=== PATIENT | female | born 1970 | race Two or more races ===

== ENCOUNTER 2017-12-14 05:55 | Inpatient (IN) | payer OTHER ==
[2017-12-14] VITALS (17 sets, daily range): BP systolic 125–166; BP diastolic 67–97
[~2017-12-14] VITALS: Ht 160 cm; Wt 113.4 kg
[~2017-12-14 05:55] MED LIST: CLARITIN10 M2 ORAL; TROSPIUM CHLORI60 MG PO; VITAMIN B COMP1 EAC2 ORAL
[2017-12-14] MEDS ORDERED: Ketamine 500mg Inj ONE (06:38)
[2017-12-14] MEDS ORDERED: Propofol 200mg/20ml IV ONE (06:38)
[2017-12-14] MEDS ORDERED: Lidocaine 1% MPF 10mg/ml 5ml ONE (06:38)
[2017-12-14] MEDS ORDERED: fentaNYL 100 mcg/2 mL IV ONE (06:38)
--- NOTE | 2017-12-14 06:41 | Pre-Procedure Note/Attestation ---
Pre-Procedure Note/Attestation Complete Prior to Procedure Planned Procedure: bilateral Procedure Narrative: L4-S1 bilateral laminectomies Indications for Procedure Pre-Operative Diagnosis: L4-S1 symptomatic stenosis Attestation I attest that I discussed the nature of the procedure; its benefits; risks and complications; and alternatives (and the risks and benefits of such alternatives ), prior to the procedure, with the patient (or the patient's legal bank representative). I attest that, if there was a reasonable possibility of needing a blood transfusion, the patient (or the patient's legal bank representative) was given the [facility] standardized written summary, pursuant to the Amos Suarez Blood Safety Act ([place] Health and Safety Code # 1645, as amended). I attest that I re-evaluated the patient just prior to the surgery and that there has been no change in the patient's H&P, except as documented below: Maynor Cain Dec 14, 2017 06:41
[2017-12-14] MEDS ORDERED: Thrombin 5000 units TOPIC ONE ×2 (06:45→06:47)
[2017-12-14] MEDS ORDERED: Thrombin 5000 units spray kit TOPIC ONE (06:45)
[2017-12-14] MEDS ORDERED: Gelfoam Size TOPIC ONE (06:45)
[2017-12-14] MEDS ORDERED: EPINEPHrine 1mg/1ml Amp ONE (06:45)
[2017-12-14] MEDS ORDERED: Bupivacaine 0.5% Inj 30 ml vial INJ ONE ×2 (06:46→10:22)
[2017-12-14] MEDS ORDERED: Dyna-Hex 2% Top Sol 2oz TOPIC ONE (06:46)
[2017-12-14] MEDS ORDERED: Gelfoam Absorbable 1gm powder pkt TOPIC ONE (06:46)
--- NOTE | 2017-12-14 06:46 | Immediate Post-Op Evaluation ---
Immediate Post-Op Evalulation Immediate Post-Op Evalulation Procedure: L4-S1 laminectomy Date of Evaluation: Dec 14, 2017 Time of Evaluation: 11:22 IV Fluids: 900ml Blood Products: 0 Estimated Blood Loss: 200ml Urinary Output: 200ml Blood Pressure Systolic: 166 Blood Pressure Diastolic: 97 Pulse Rate: 98 Respiratory Rate: 23 O2 Sat by Pulse Oximetry: 96 Temperature (Fahrenheit): 97.4 Pain Score (1-10): 0 Nausea: No Vomiting: No Complications none Patient Status: awake, patent, none Hydration Status: adequate Drug: ancef 2 grams Given Within 1 Hr of Incision: Yes Time Given: 07:30 Maribell Abad MD Dec 14, 2017 06:46
[2017-12-14] MEDS ORDERED: Vancomycin 1gm inj IVPB ONE (06:47)
--- NOTE | 2017-12-14 06:47 | Anethesia Preoperative Eval ---
Anesthesia Pre-op PMH/ROS General Date of Evaluation: Dec 14, 2017 Time of Evaluation: 07:00 Anesthesiologist: ASA Score: ASA 2 Mallampati Score Class I : Soft palate, uvula, fauces, pillars visible Class II: Soft palate, uvula, fauces visible Class III: Soft palate, base of uvula visible Class IV: Only hard plate visible Mallampati Classification: Class II Surgeon: judson Diagnosis: back pain Surgical Procedure: L4-51 bilteral laminectomy and possible discectomy Allergies: Coded Allergies: Bumble Bee (Verified Allergy, Severe, 12/14/17) SHORTNESS OF BREATH METHADONE (Verified Allergy, Severe, 12/14/17) SHORTNESS OF BREATH OXYCODONE (Verified Allergy, Severe, 12/14/17) SHORTNESS OF BREATH, CHEST TIGHTNESS, ITCHING, HIVES PREDNISONE (Verified Allergy, Severe, 12/14/17) CHEST TIGHTNESS, SOB, ITCHING Past Medical History Cardiovascular: Denies: HTN, CAD, DE, valve dz, arrhythmia, other Pulmonary: Denies: asthma, COPD, AYANA, other Gastrointestinal/Genitourinary: Reports: other - urinary incontinence; Denies: GERD, CRI, ESRD Neurologic/Psychiatric: Denies: dementia, CVA, depression/anxiety, TIA, other Endocrine: Denies: DM, hypothyroidism, steroids, other HEENT: Denies: cataract (L), cataract (R), glaucoma, QAGAN TAYAGUNGIN (L), QAGAN TAYAGUNGIN (R), other Other: obesity PSxH Narrative: tubal ligation, elbow surgeries Anesthesia Pre-op Phys. Exam Physician Exam Constitutional: other - back pain Cardiovascular: RRR Respiratory: CTA Gastrointestinal: S/NT/ND Airway Exam Mallampati Score: Class II MO: full ROM: full Teeth: intact Dentures: no upper, no lower Anesthesia Pre-op A/P Labs Urine Test negative Risk Assessment & Plan Assessment: asa 2 Plan: ETGA Status Change Before Surgery: No Pre-Antibiotics Drug: ancef 2 grams Given Within 1 Hr of Incision: Yes Time Given: 07:30 Maribell Abad MD Dec 14, 2017 06:47
[2017-12-14] MEDS ORDERED: Zemuron 50mg/5ml Inj IV ONE (06:51)
[2017-12-14] MEDS ORDERED: Sugammadex Sodium 200mg/2ml vial IV ONE (06:51)
[2017-12-14] MEDS ORDERED: Propofol 1,000mg/ 100ml btl IV ONE (07:00)
[2017-12-14] MEDS ORDERED: LR 1000ml ONE (07:00)
[2017-12-14] MEDS ORDERED: NS Irrig 1000ml ONE (07:00)
[2017-12-14] MEDS ORDERED: Sterile Water Irrig 1000ml IRRIG ONE (07:00)
[2017-12-14] MEDS ORDERED: Bacitracin 50000 Units Vial ONE (07:02)
[2017-12-14] MEDS ORDERED: LR 1000ml 1,000 ML IVLG SCH (08:25)
[2017-12-14] MEDS ORDERED: DiphenhydrAMINE 50mg/ml Inj IVP PRN (08:30)
[2017-12-14] MEDS ORDERED: Hydromorphone 0.5mg/0.5ml inj IVP PRN (08:30)
[2017-12-14] MEDS ORDERED: Labetalol 5mg/ml 20ml vial IV PRN (08:30)
[2017-12-14] MEDS ORDERED: Acetaminophen (Non formulary) 100 ML IV ONE (09:00)
--- NOTE | 2017-12-14 11:04 | Brief Operative Note ---
Immediate Post Operative Note Operative Note Chief Complaint: Back pain with radiculopathy Pre-op Diagnosis: L4-S1 symptomatic stenosis Procedure: L4-S1 bilateral laminectomy Post-op Diagnosis: same as pre-op Surgeon: Dr Cain Anesthesia: general Specimen: yes - lamina and ligaments Complications: none Condition: stable Fluids: NA Estimated Blood Loss: volume - 75 ml Drains: none Implant(s) used?: No Maynor Cain Dec 14, 2017 11:04
[2017-12-14] MEDS: fentaNYL 100 mcg/2 mL IV PRN ×4 (11:47→12:33)
[2017-12-14] MEDS ORDERED: Ketorolac 30mg Inj IV SCH (12:15)
--- NOTE | 2017-12-14 12:21 | Diagnostic Imaging Report ---
Indication: Pain Comparison: None Findings: Single crosstable lateral view of the lumbar spine showing instrumentation posterior to L4-5. Total fluoroscopic time 3 seconds. Single image noted. IMPRESSION: Intraoperative imaging
--- NOTE | 2017-12-14 13:11 | 48 Hour Post Anesthesia Eval ---
Post Anesthesia Evaluation Procedure: L4-S1 laminectomy Date of Evaluation: Dec 14, 2017 Time of Evaluation: 12:46 Blood Pressure Systolic: 131 0: 81 Pulse Rate: 90 Respiratory Rate: 11 Temperature (Fahrenheit): 97.8 O2 Sat by Pulse Oximetry: 99 Airway: patent Nausea: No Vomiting: No Pain Intensity: 5 Hydration Status: adequate Mental Status/LOC: patient returned to baseline Post-Anesthesia Complications: none Follow-up care needed: N/A Maribell Abad MD Dec 14, 2017 13:11
[2017-12-14] MEDS ORDERED: Ketorolac 30mg Inj IM SCH (14:00)
[2017-12-14] MEDS: ceFAZolin sod 2 GM in D5W 55 ML IV SCH (16:14)
[2017-12-14] MEDS: Ketorolac 30mg Inj IM SCH ×2 (16:14→22:30)
[2017-12-14] MEDS: Docusate 100mg cap ORAL SCH (16:20)
--- NOTE | 2017-12-14 17:10 | General Progress Note ---
Assessment/Plan Status Narrative s/p complex spine surgery pt ot dvt prophyalxis doing well monitor svetlana Subjective Date patient seen: Dec 14, 2017 Time patient seen: 17:09 Constitutional: Reports: no symptoms - has pain Allergies: Coded Allergies: Bumble Bee (Verified Allergy, Severe, 12/14/17) SHORTNESS OF BREATH METHADONE (Verified Allergy, Severe, 12/14/17) SHORTNESS OF BREATH OXYCODONE (Verified Allergy, Severe, 12/14/17) SHORTNESS OF BREATH, CHEST TIGHTNESS, ITCHING, HIVES PREDNISONE (Verified Allergy, Severe, 12/14/17) CHEST TIGHTNESS, SOB, ITCHING Objective Last 24 Hour Vital Signs Date Time Temp Pulse Resp B/P (MAP) Pulse Ox O2 Delivery O2 Flow Rate FiO2 12/14/17 16:00 97.6 90 18 133/74 (93) 99 97.6 12/14/17 14:15 97.3 84 18 135/90 (105) 96 97.3 12/14/17 13:45 Nasal Cannula 2.0 12/14/17 13:45 97.5 86 18 139/87 (104) 98 97.5 12/14/17 13:36 97.3 12/14/17 13:15 98.0 86 14 140/88 99 Nasal Cannula 3 98.0 12/14/17 13:11 208.0 90 11 99 12/14/17 13:06 97.8 12/14/17 13:06 92 13 130/82 99 Nasal Cannula 3 12/14/17 13:00 91 13 131/80 99 Nasal Cannula 3 12/14/17 12:46 90 11 131/81 99 Nasal Cannula 3 12/14/17 12:33 89 11 128/85 99 Nasal Cannula 3 12/14/17 12:33 97.8 12/14/17 12:30 97.3 12/14/17 12:11 89 11 145/85 99 Nasal Cannula 3 12/14/17 12:11 97.8 12/14/17 12:00 97.8 12/14/17 12:00 92 20 149/88 99 Nasal Cannula 3 12/14/17 11:47 94 17 137/91 99 Simple Mask 8 12/14/17 11:47 97.8 12/14/17 11:40 95 18 133/91 99 Simple Mask 8 12/14/17 11:32 97 18 134/91 97 Simple Mask 8 12/14/17 11:31 207.3 98 23 96 12/14/17 11:27 98 23 154/95 96 Simple Mask 8 12/14/17 11:22 97.4 98 23 166/97 96 Simple Mask 8 97.4 12/14/17 06:48 Room Air 12/14/17 06:42 97.9 83 18 125/67 (86) 99 97.9 Intake and Output 12/13/17 12/14/17 19:00 07:00 # Voids 1 Laboratory Tests 12/14/17 06:20: Urine HCG, Qualitative Negative Height (Feet): 5 Height (Inches): 3.00 Weight (Pounds): 250 General Appearance: WD/WN EENT: PERRL/EOMI Cardiovascular: normal rate, regular rhythm, no JVD Respiratory/Chest: lungs clear Abdomen: soft Aries Liao MD Dec 14, 2017 17:10
[2017-12-14] MEDS: Methocarbamol 500mg tab ORAL SCH ×2 (17:36→22:30)
--- NOTE | 2017-12-14 18:30 | Operative Note - Dictated ---
DATE OF OPERATION: 12/14/2017 INDICATION FOR SURGERY: The patient is a pleasant 47-year-old female who presented with signs and symptoms of low back pain with bilateral lumbar radiculopathy. She had attempted and failed conservative measures. Therefore, surgical and nonsurgical options were discussed. The patient requested surgical intervention. RISKS AND BENEFITS DISCUSSION: The patient was apprised about objectives, benefits, risks, and potential complications of the procedure including, but not limited to worsening of current status, possible need for further procedures, risk of infection, headache, CSF leak, possible spinal cord injury resulting in paralysis, injury to major blood vessels, chronic hemorrhage, stroke, loss of language function, coma, and even . No assurance was given whether these symptoms will improve following the procedure. Informed consent was obtained and secured in the chart after the patient voiced understanding of these risks and decided to proceed with the operation. PREOPERATIVE DIAGNOSES: 1. L4-L5 and L5-S1 stenosis. 2. Bilateral lumbar radiculopathy. 3. Morbid obesity. POSTOPERATIVE DIAGNOSES: 1. L4-L5 and L5-S1 stenosis. 2. Bilateral lumbar radiculopathy. 3. Morbid obesity. OPERATIONS: 1. L4-L5 and L5-S1 bilateral decompressive laminectomy with partial fasciectomies. 2. Microscope. 3. Fluoroscope. 4. Neuromonitoring done by outside company. 5. modifier for greater than 90 minutes spent from normal operative time during dissection, positioning, and in dissection plane due to the patient's morbid obesity status, which made surgical intervention very difficult. 6. L4-L5 and L5-S1 bilateral facet joint injections for postoperative pain control including paraspinal injections. SURGEON: Maynor Cain M.D. PUBLIC INTERVIEWER: None. ANESTHESIA: GETA. ANESTHESIOLOGIST: Dr. Maribell Abad. ESTIMATED BLOOD LOSS: Approximately 75 mL. FINDINGS: Severe stenosis at L4-L5 and L5-S1. SPECIMEN SENT: Lamina and ligaments removed. COMPLICATIONS: None. TECHNIQUE: The patient was brought into the operating room. She was then sedated and intubated by the anesthesia team. The patient was transferred to the operating table on prone position. Preoperative antibiotics were given. Eyes were taped shut after ointment was applied to prevent corneal abrasion. Vitaly Hugger was placed over the lower body to maintain control of core body temperature. Cruz catheter was inserted. All pressure points were carefully padded. Neuromonitoring team placed the needles in appropriate position and baselines were obtained. An extra time was spent during positioning due to the patient's morbid obesity. C-arm was brought in and localization of the operative levels was performed. The skin was prepped and draped in the standard surgical fashion. A time-out was taken. A linear incision was performed with a scalpel blade and dissection was carried down to the fascial layer. The fascia was then opened and dissection was continued over the lamina and medial aspect of the facet joints bilaterally at L4-L5 and L5-S1. An x-ray was used again to confirm the correct level. An extra time was spent during dissection due to the patient's morbid obesity. Attention was first placed towards the L4 lamina. Microscope was brought in and the lamina of L4 was removed bilaterally. Partial bilateral fasciectomies was also performed. A hypertrophic ligament and flavum was removed. The lateral recess and canal were decompressed. Foraminotomies following the nerve roots of L4 and L5 were completed. Central canal, lateral recess, and foramina were rechecked to confirm to have achieved excellent decompression. Copious amount of antibiotic irrigation was then used and excellent hemostasis was maintained. The same process was then repeated for the L5-S1 level. Once completed, bilateral facet joint injections at L4-L5 and L5-S1 was carried out including paraspinal injections for postoperative pain control. The muscle layers were then reapproximated followed by watertight closure of the facial layer. The subcutaneous layer and the skin edges were all reapproximated with sutures. Skin glue was applied to the final layer. All needle count, sponge count, and instrument counts were correct at the end of the case x2. The neuromonitoring signals were stable throughout the entire case. The patient was transferred to the recovery in stable condition. The patient's family was updated after the surgery. The patient was examined after surgery and recovery and was able to move all extremities without difficulty. Maynor Cain MD DR: MARY JOB#: [id number] CC:
[2017-12-14] MEDS: Morphine Sulfate 2mg/ml Inj(IV/IM USE ONLY) IVP PRN (20:03)
[2017-12-15] VITALS: BP 106/67
[2017-12-15] MEDS: ceFAZolin sod 2 GM in D5W 55 ML IV SCH ×2 (00:49→07:29)
[2017-12-15] MEDS: Morphine Sulfate 2mg/ml Inj(IV/IM USE ONLY) IVP PRN ×3 (01:55→14:10)
[2017-12-15 04:00] VITALS: BP 135/75
[2017-12-15] MEDS: Ketorolac 30mg Inj IM SCH ×3 (04:50→16:25)
[2017-12-15 08:00] VITALS: BP 104/54
[2017-12-15] MEDS: Docusate 100mg cap ORAL SCH ×2 (08:50→17:40)
[2017-12-15] MEDS: Methocarbamol 500mg tab ORAL SCH ×4 (08:50→21:59)
[2017-12-15] MEDS: TROSPIUM 60 MG ORAL SCH (10:05)
[2017-12-15 12:00] VITALS: BP 100/63
--- NOTE | 2017-12-15 13:56 | Diagnostic Imaging Report ---
APPROVED REPORT CPT Code: 73046 Present Symptoms Comments: BILATERAL LEGS PAIN. BILATERAL: Imaging reveals a patent deep venous system bilaterally. There is no evidence of thrombus within the femoral, popliteal or tibial segments. The greater saphenous veins are also within normal limits. Doppler indicates normal spontaneous flow within these segments.
[2017-12-15 16:00] VITALS: BP 118/71
--- NOTE | 2017-12-15 19:58 | General Progress Note ---
Assessment/Plan Status Narrative s/p complex sopine usrgeyr Assessment/Plan plan n morphine extended release 15 bid morh[phine prn and dc topradol get her odff morphi iv dc plannnig tommorrow. Subjective Date patient seen: Dec 15, 2017 Time patient seen: 19:56 Constitutional: Reports: no symptoms HEENT: Reports: no symptoms Allergies: Coded Allergies: Bumble Bee (Verified Allergy, Severe, 12/14/17) SHORTNESS OF BREATH METHADONE (Verified Allergy, Severe, 12/14/17) SHORTNESS OF BREATH OXYCODONE (Verified Allergy, Severe, 12/14/17) SHORTNESS OF BREATH, CHEST TIGHTNESS, ITCHING, HIVES PREDNISONE (Verified Allergy, Severe, 12/14/17) CHEST TIGHTNESS, SOB, ITCHING Subjective has a lot o fpai9n ion morphine iv and troradol iv Objective Last 24 Hour Vital Signs Date Time Temp Pulse Resp B/P (MAP) Pulse Ox O2 Delivery O2 Flow Rate FiO2 12/15/17 16:55 97.9 12/15/17 16:25 97.9 12/15/17 16:10 97.9 12/15/17 16:00 98.4 93 20 118/71 (87) 98 98.4 12/15/17 15:11 97.9 12/15/17 14:40 97.9 12/15/17 14:10 97.9 12/15/17 12:00 97.9 83 20 100/63 (75) 98 97.9 12/15/17 10:03 98.3 12/15/17 09:00 Room Air 12/15/17 08:21 Room Air 12/15/17 08:08 98.3 12/15/17 08:00 98.0 94 20 104/54 (71) 98 98.0 12/15/17 04:00 98.3 101 20 135/75 (95) 96 98.3 12/15/17 00:00 98.0 105 20 106/67 (80) 99 98.0 12/14/17 21:00 Nasal Cannula 2.0 12/14/17 20:38 97 Nasal Cannula 2.0 12/14/17 20:38 Nasal Cannula 2.0 12/14/17 20:00 97.9 86 18 125/68 (87) 100 97.9 Intake and Output 12/14/17 12/15/17 19:00 07:00 Intake Total 2400 ml 800 ml Output Total 2250 ml 1400 ml Balance 150 ml -600 ml Intake Oral 1200 ml 800 ml IV Total 1200 ml Output Urine Total 2050 ml 1400 ml Estimated Blood Loss 200 ml Height (Feet): 5 Height (Inches): 3.00 Weight (Pounds): 250 General Appearance: WD/WN Cardiovascular: normal rate, regular rhythm, no JVD Respiratory/Chest: lungs clear Objective back no drainge Aries Liao MD Dec 15, 2017 19:58
[2017-12-15 20:00] VITALS: BP 118/78
[2017-12-15] MEDS: MS Contin 15mg tab ORAL SCH (22:00)
[2017-12-16] VITALS: BP 103/56
[2017-12-16] MEDS: Morphine IR 15mg tab ORAL PRN ×3 (02:05→17:42)
[2017-12-16 04:00] VITALS: BP 111/63
[2017-12-16 08:00] VITALS: BP 127/85
[2017-12-16] MEDS: Docusate 100mg cap ORAL SCH (09:14)
[2017-12-16] MEDS: Methocarbamol 500mg tab ORAL SCH ×3 (09:15→17:41)
[2017-12-16] MEDS: TROSPIUM 60 MG ORAL SCH (09:16)
[2017-12-16] MEDS: MS Contin 15mg tab ORAL SCH (09:16)
[2017-12-16 12:00] VITALS: BP 125/85
[2017-12-16] MEDS ORDERED: Milk of Magnesia 30ml Ud ORAL PRN (13:00)
[2017-12-16 16:00] VITALS: BP 118/70
[2017-12-16] MEDS ORDERED: Docusate 250mg cap ORAL SCH (18:00)
[2017-12-16] MEDS ORDERED: MORPHINE IR15 MG ORAL (19:49)
[2017-12-16] MEDS ORDERED: ROBAXIN500 MG PO ×2 (19:49→19:51)
[2017-12-16] MEDS ORDERED: MOVANTIK25 MG PO (19:56)
[2017-12-16 20:00] VITALS: BP 135/83
[2017-12-16] MEDS ORDERED: MORPHINE SULFATE IR PO (20:05)
--- NOTE | 2017-12-17 00:15 | Discharge Summary ---
DATE OF ADMISSION: 12/14/2017 DATE OF DISCHARGE: 12/16/2017 HOSPITAL COURSE: The patient was admitted to the hospital to undergo spine surgery. The patient underwent spine surgery without difficulty. Postoperatively, the patient was the floor and is doing well upon discharge. The patient was discharged home with Robaxin 1000 mg t.i.d., MS Contin twice a day, and MS-IR p.r.n. She was only given 40 of MS Contin, 100 of Robaxin, and 20 of morphine IR. The patient will follow up with Dr. Cain. Also, the patient was placed on Movantik for stool softeners. Aries Liao M.D. DR: PERI JOB#: [id number] CC:
== END 2017-12-16 20:54 | disposition home or self-care (01) | DRG 516 ==
LOC: SDSOVERFLO 05:55 → 3E 13:22
PROC: 01NB0ZZ Release Lumbar Nerve, Open Approach (ICD-10-PCS; principal; 2017-12-14 07:00)
DX: M48.07 Spinal stenosis, lumbosacral region (principal); Z68.41 Body mass index [BMI] 40.0-44.9, adult; M54.10 Radiculopathy, site unspecified; E66.01 Morbid (severe) obesity due to excess calories
CPT/HCPCS: 36415; 72020; 76000; 81025; 86850; 86900; 86901; 87081; 93970; 94003; 94150; 94760; J2405